=== PATIENT | male | born 1950 | race Caucasian/White ===

== ENCOUNTER → 2022-01-31 09:52 | Outpatient (BNVA) | payer MEDICARE, SELFPAY | PROVIDERS: Family Provider Nurse Practitioner Family; PCP Nurse Practitioner Family; Visit Provider Surgery | DX: D64.9 Anemia, unspecified (principal) | CPT/HCPCS: 99203 ==

== ENCOUNTER 2022-03-08 08:02 | Day surgery (SDC) | payer MEDICARE, SELFPAY ==
[2022-03-06 08:53] VITALS: BMI 30.5
[2022-03-08 09:02] VITALS: BP 137/86; PULSE 83; RESP 18; TEMP 36.1; O2SAT 97
--- NOTE | 2022-03-08 09:06 | P.ANESASSM_ITS ---
Pre-Anesthetic Assessment Height/Weight: Height 1.83 m Weight 102.058 kg Temp Pulse Resp BP Pulse Ox 97.0 F L 83 18 137/86 97 03/08/22 09:02 03/08/22 09:02 03/08/22 09:02 03/08/22 09:02 03/08/22 09:02 Preop Diagnosis: upper gi symptoms Operation Date: 03/08/22 10:00 Proposed Procedures p EGD [id number]/d50.9(Not Applicable) - Adán Vazquez MD s Colonoscopy(Not Applicable) - Adán Vazquez MD Familial anesthetic complications: None Was Beta Fern taken within 24 hours: N/A Was Clonidine taken within 24 hours: N/A Last intake: Intake Last Liquid Date 03/07/22 Last Liquid Time 21:00 Last Solid Date 03/06/22 Last Solid Time 19:00 Social No alcohol and No tobacco Exam alert, oriented x 3, clear to auscultation bilaterally and regular rate & rhythm Airway Mallampati: Class II Dentition: full Pulmonary None reported CV/HEM Anemia and Hypertension None reported Hepatic None reported GI Gastroesophageal Reflux Disease Metabolic Diabetes Mellitus, Hyperlipidemia and Thyroid Disease [facility] [place] None reported Neuropsych None reported Anesthetic Plan ASA status: 3 Anesthesia: MAC Risk of > 500 ml blood loss (7ml/kg in children): No Medications/Allergies Home Medications Medication Instructions Recorded Confirmed Last Taken Type amlodipine 5 mg tablet 5 mg PO DAILY 01/31/22 03/06/22 03/07/22 History atorvastatin 80 mg tablet 80 mg PO DAILY 01/31/22 03/06/22 03/07/22 History blood-glucose meter (OneTouch 01/31/22 01/31/22 03/07/22 History Verio Flex meter) cod liver oil 1 cap PO DAILY 01/31/22 03/06/22 03/07/22 History colchicine 0.6 mg tablet 0.6 mg PO BID 01/31/22 03/06/22 03/07/22 History famotidine 20 mg tablet 20 mg PO BID 01/31/22 03/06/22 03/07/22 History hydrochlorothiazide 25 mg tablet 25 mg PO DAILY 01/31/22 03/06/22 03/07/22 History levothyroxine 75 mcg tablet 75 mcg PO DAILY 01/31/22 03/06/22 03/08/22 History (Euthyrox) lisinopril 5 mg tablet 5 mg PO DAILY 01/31/22 03/06/22 03/07/22 History meloxicam 15 mg tablet 15 mg PO DAILY 01/31/22 03/06/22 03/07/22 History metformin 500 mg tablet 500 mg PO DAILY 01/31/22 03/06/22 03/07/22 History Allergies Allergy/AdvReac Type Severity Reaction Status Date / Time No Known Allergies Allergy Unverified 03/06/22 08:48 [facility] Anesthesia Medical History (Updated 01/31/22 @ 13:06 by Adán Vazquez MD) Diabetes mellitus GERD (gastroesophageal reflux disease) Hyperlipemia Hypertension Hypothyroidism Meningitis Surgical History History of colonoscopy History of rotator cuff surgery Social History Smoking and tobacco status: never smoked Data Anesthesia Cardiac Studies: No Data to Display
[2022-03-08] MEDS: sodium chloride 0.9% 1,000 ML 30 ML IV (09:09)
--- NOTE | 2022-03-08 10:15 | W.PM.OPSFHP ---
Same Day Surgery H&P Indication for Procedure/HPI DATE OF PROCEDURE: March 08, 2022 CHIEF COMPLAINT/INDICATIONFOR SURGICAL PROCEDURE: egd/colon PREOP DIAGNOSIS: upper gi symptoms PLANNED PROCEDURE: Operation Date: 03/08/22 10:00 Proposed Procedures p EGD [id number]/d50.9(Not Applicable) - Adán Vazquez MD s Colonoscopy(Not Applicable) - Adán Vazquez MD Medications/Allergies* Home Medications Medication Instructions Recorded Confirmed Type amlodipine 5 mg tablet 5 mg PO DAILY 01/31/22 03/06/22 History atorvastatin 80 mg tablet 80 mg PO DAILY 01/31/22 03/06/22 History blood-glucose meter (OneTouch 01/31/22 01/31/22 History Verio Flex meter) cod liver oil 1 cap PO DAILY 01/31/22 03/06/22 History colchicine 0.6 mg tablet 0.6 mg PO BID 01/31/22 03/06/22 History famotidine 20 mg tablet 20 mg PO BID 01/31/22 03/06/22 History hydrochlorothiazide 25 mg tablet 25 mg PO DAILY 01/31/22 03/06/22 History levothyroxine 75 mcg tablet 75 mcg PO DAILY 01/31/22 03/06/22 History (Euthyrox) lisinopril 5 mg tablet 5 mg PO DAILY 01/31/22 03/06/22 History meloxicam 15 mg tablet 15 mg PO DAILY 01/31/22 03/06/22 History metformin 500 mg tablet 500 mg PO DAILY 01/31/22 03/06/22 History Allergies/Adverse Reactions Allergy/AdvReac Type Severity Reaction Status Date / Time No Known Allergies Allergy Unverified 03/06/22 08:48 Current Medications: Generic Name Dose Route Start Last Admin Trade Name Freq PRN Reason Stop Dose Admin Sodium Chloride 1,000 mls @ 30 mls/hr 03/08/22 09:00 03/08/22 09:09 Sodium Chloride 0.9% IV 03/09/22 08:59 30 mls/hr .Q24H TAMIA Administration Pertinent History/Comorbid Conditions* Medical History (Updated 01/31/22 @ 13:06 by Adán Vazquez MD) Diabetes mellitus GERD (gastroesophageal reflux disease) Hyperlipemia Hypertension Hypothyroidism Meningitis Surgical History (Updated 01/31/22 @ 10:39 by Adán Vazquez MD) History of colonoscopy History of rotator cuff surgery Social History Smoking and tobacco status: never smoked Pertinent Exam Findings alert, oriented x 3 and regular rate & rhythm Recommendations Surgery/Procedure today Coding Level of Care Code Acute [employer]
[2022-03-08 10:49] VITALS: BP 143/100; PULSE 67; RESP 18; TEMP 36.6; O2SAT 92
--- NOTE | 2022-03-08 10:50 | ANE.PACU2 ---
Inpatient post-anesthesia follow up: Airway intact: Yes Vital signs: Temperature 97.9 F Pulse Rate 67 Respiratory Rate 18 Blood Pressure 143/100 Pulse Oximetry 92 Oxygen Delivery Me thod Room Air Oxygen Flow Rate Fraction of Inspir ed Oxygen Hydration adequate: Yes Nausea and vomiting: No Pain level: 1 Mental status: Baseline
[2022-03-08 11:10] VITALS: BP 143/96; PULSE 64; RESP 18; TEMP 36.7; O2SAT 96
--- NOTE | 2022-03-08 11:20 | PC.NURSE ---
PATIENT HAS MET CRITERIA TO BE DISCHARGED, IS DRESSED AND READY. REQUESTS TO STAY LONGER, BECAUSE HIS IS NOT READY TO PICK HIM UP. UNABLE TO GET A HOLD OF SPOUSE AND PATIENT SAYS HE WILL CALL HER LATER.....PATIENT IS VERY EVASIVE IN REGARDS TO WHEN HIS SPOUSE CAN COME GET HIM. UPON FURTHER CONVERSATION, IT IS DISCOVERED THAT HE DROVE HIMSELF HERE. EXPLAINED TO PATIENT THAT HE COULD NOT DRIVE HIMSELF BECAUSE HE HAS HAD ANESTHESIA AND THAT IT IS UNSAFE FOR HIM WELL OTHERS TO BE DRIVING. PATIENT VERBALIZED UNDERSTANDING. PATIENT WAS TAKEN VIA W/C TO THE SPECIALS ROOM TO WAIT FOR FAMILY TO PICK HIM UP. PATIENT LATER TOLD STAFF THAT THINGS HAD COME UP WITH HIS GRANDKIDS THAT HIS HAD TO TEND TO AND HE DIDNT WANT TO RESCHEDULE, SO HE DROVE HIMSELF.
== END 2022-03-08 11:30 | disposition home or self-care (01) ==
PROVIDERS: PCP Nurse Practitioner Family; Visit Provider Surgery
PROC: 0DJ08ZZ Inspection of Upper Intestinal Tract, Via Natural or Artificial Opening Endoscopic (ICD-10-PCS; CPT 43235; principal; 2022-03-08 10:00)
PROC: 0DJD8ZZ Inspection of Lower Intestinal Tract, Via Natural or Artificial Opening Endoscopic (ICD-10-PCS; CPT 45378; 2022-03-08 10:00)
DX: D50.9 Iron deficiency anemia, unspecified (principal); K57.30 Diverticulosis of large intestine without perforation or abscess without bleeding; K64.8 Other hemorrhoids; K22.2 Esophageal obstruction; K44.9 Diaphragmatic hernia without obstruction or gangrene; I10 Essential (primary) hypertension; K21.9 Gastro-esophageal reflux disease without esophagitis; E78.5 Hyperlipidemia, unspecified; E11.9 Type 2 diabetes mellitus without complications; Z79.84 Long term (current) use of oral hypoglycemic drugs
CPT/HCPCS: 43235; 45380; 82274; 83630; 87493; 87506; 88305; J2704; J7030

== ENCOUNTER → 2022-03-28 12:22 | Outpatient (BNVA) | payer MEDICARE, SELFPAY | PROVIDERS: PCP Nurse Practitioner Family; Visit Provider Surgery | DX: Z09 Encounter for follow-up examination after completed treatment for conditions other than malignant neoplasm (principal) | CPT/HCPCS: 99212 ==

== ENCOUNTER → 2025-05-14 08:51 | Outpatient (BNVA) | payer MEDICARE, SELFPAY | PROVIDERS: PCP Nurse Practitioner Family; Visit Provider Podiatrist Foot & Ankle Surgery | DX: L03.115 Cellulitis of right lower limb (principal); M10.9 Gout, unspecified | CPT/HCPCS: 73630; 99204 ==